=== PATIENT | female | born 1960 | race Caucasian/White ===

== ENCOUNTER 2017-04-07 19:56 | Emergency (ER) | payer OTHER ==
[2017-04-07 20:06] VITALS: BP 136/79
--- NOTE | 2017-04-07 21:11 | UC ---
Headache HPI - HPI Summary HPI Summary: STARTED WITH FIGUEROA ABOUT A WEEK AGO. RIGHT TEMPORAL LOCATION. CONSTANT. NOT LIKE HER MIGRAINES AT ALL. IMITREX AND 800MG ADVIL NOT HELPING. WORSE OVER PAST FEW DAYS. TRAMADOL NOT HELPING. HAS BEEN CRYING HERSELF TO SLEEP. WHEN ASKED IF THIS IS THE WORSE FIGUEROA OF HER LIFE SHE RESPONDS "IT'S GETTING TO IT". ALSO HAS SEVERE PAIN BETWEEN HER SHOUDLER BLADES RADIATING UP HER NECK AND BACK OF HER HEAD. HAS FIBROMYALGIA BUT THIS AGAIN FEELS DIFFERENT. DOES NOT TAKE BLOOD THINNERS. 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 - Hx Last Menstrual Period: 6 months Onset/Duration: Sudden Onset, Lasting Days, Still Present Onset Of Symptoms: Sudden Pain Intensity: 8 Pain Scale Used: 0-10 Numeric Timing: Constant Character: Throbbing Location of Headache: Temporal - RIGHT SIDE Aggravating Factor: Nothing Allevating Factors: Nothing Associated Signs And Symptoms: Positive: Nausea, Neck Pain - Allergies/Home Medications Allergies/Adverse Reactions: Allergies Allergy/AdvReac Type Severity Reaction Status Date / Time Sulfa Antibiotics Allergy Severe Anaphylatic Verified 04/07/17 20:06 Shock Home Medications: Home Medications Multiple Vitamins W/ Minerals [Multivitamin Adults] 1 tab PO DAILY 04/07/17 [ History Confirmed 04/07/17] SUMAtriptan TAB* [Imitrex TAB*] 50 mg PO DAILY PRN 04/07/17 [History Confirmed 04/07/17] PMH/Surg Hx/FS Hx/Imm Hx - Additional Past Medical History Additional PMH: FIBROMYALGIA Neurological History: Migraine - Surgical History Surgical History: Yes Surgery Procedure, Year, and Place: RIGHT AND LEFT OOPHRECTOMY. APPENDECTOMY - Family History Known Family History: Positive: Diabetes - Social History Alcohol Use: None Substance Use Type: None Smoking Status (MU): Never Smoked Tobacco Have You Smoked in the Last Year: No Review of Systems Constitutional: Negative Respiratory: Negative Cardiovascular: Negative Gastrointestinal: Nausea Musculoskeletal: Arthralgia, Myalgia Neurological: Headache All Other Systems Reviewed And Are Negative: Yes Physical Exam Triage Information Reviewed: Yes Appearance: Well-Nourished, Pain Distress - SEVERE Vital Signs: Initial Vital Signs Temp 98.7 F 04/07/17 20:00 Pulse 84 04/07/17 20:00 Resp 16 04/07/17 20:00 BP 136/79 04/07/17 20:00 Pulse Ox 98 04/07/17 20:00 Vital Signs Reviewed: Yes Eyes: Positive: Conjunctiva Clear ENT: Positive: Hearing grossly normal Neck: Positive: Supple Respiratory Exam: Normal Cardiovascular Exam: Normal Abdomen Description: Positive: Soft Musculoskeletal: Positive: No Edema Neurological: Positive: Alert Psychological: Positive: Normal Response To Family, Age Appropriate Behavior Skin: Negative: rashes Headache Course/Dx - Course Course Of Treatment: DISCUSSED POSSIBILITY OF TEMPORAL ARTERITIS , INTRACRANIAL HEMORRHAGE AND NEED FOR FURTHER EVALUATION IN ED. PT DECLINES TRANSFER AND CHOOSES TO SIGN OUT AMA. - Differential Dx/Diagnosis Provider Diagnoses: 1. RIGHT TEMPORAL FIGUEROA. 2. MID/UPPER BACK PAIN Discharge - Discharge Plan Condition: Fair Disposition: AGAINST MEDICAL ADVICE Referrals: Rae Rebolledo MD [Primary Care Provider] -
== END 2017-04-07 21:12 | disposition left against medical advice (07) ==
LOC: UCEAST 19:56
DX: R51 Headache (principal); M54.9 Dorsalgia, unspecified; Z53.29 Procedure and treatment not carried out because of patient's decision for other reasons
CPT/HCPCS: 99212; G0463

== ENCOUNTER 2017-04-16 16:45 | Emergency (ER) | payer OTHER ==
[2017-04-16 16:52] VITALS: BP 111/78
[2017-04-16] MEDS ORDERED: Dexamethasone IV* 4 MG/ML 1 ML (4 MG) IM ONE (18:18)
[2017-04-16] MEDS ORDERED: Ketorolac INJ* 60 MG/2 ML VIAL IM ONE (18:18)
[2017-04-16] MEDS ORDERED: Orphenadrine Citrate IV* 30 MG/ML 2 ML VIAL IM ONE (18:18)
--- NOTE | 2017-04-16 18:23 | ED ---
Back Pain - HPI Summary HPI Summary: 56 female presents with complaints of right upper/mid back pain that began ~2 weeks ago after lifting heavy equipment and feeling something tear. Since then she has had excruciating pain that she has been unable to keep under control. Patient also states she has tenderness on the right side of her face with some intermittent blurred vision in the right eye that has been ongoing since her shoulder pain began. Denies vision loss. "slight right sided headache". She does have migraines and states this feels differently. She also states her jaw feels tight. Has seen Dr Guerra, Dr Clark x 2 and chiropractor for the same complaints. Has been given norco and cortisone shot into her shoulder which she states does give her relief however only for 24 hours. Chiropractor did help. Has also been taking Advil multiple times daily. Has not had any medication today besides 1 norco at 9am. Describes pain to be sharp and burning that is worse when she raises her right arm to brush her or do her hair. Denies numbness /tingling. Denies chest pain, SOB and difficulty breathing. Nausea from pain at times but no vomiting. Take half of flexeril at bedtime for her fibromyalgia. PMHx significant for fibromyalgia and migraines. Dr Clark told her to come to ED after seeing him this afternoon as further imaging and work up would take too long outpatient. No swelling bruising or redness. 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 Unsure of last tick. Denies rash. Right hand dominant. - History of Current Complaint Chief Complaint: EDShoulderClavicleInj Stated Complaint: RT SHOULDER PAIN Time Seen by Provider: 04/16/17 17:51 Hx Obtained From: Patient Hx Last Menstrual Period: 6 months Onset/Duration: Sudden Onset, Lasting Weeks, Still Present, Worse Since Onset/Duration: Started Weeks Ago, Traumatic, Worse Since Timing: Constant Back Pain Location: Is Discrete @ - right upper/mid back shoulder blade radiating to side and neck Severity Initially: Moderate Severity Currently: Severe Pain Intensity: 9 Pain Scale Used: 0-10 Numeric Character: Sharp, Aching Aggravating Symptom(s): Movement Alleviating Symptom(s): Rest, Nothing Associated Signs And Symptoms: Positive: Negative - Risk Factors AAA Risk Factors: Negative TAD Risk Factors: Negative Cauda Equina Risk Factors: Negative Epidural Abscess Risk Factors: Negative - Allergies/Home Medications Allergies/Adverse Reactions: Allergies Allergy/AdvReac Type Severity Reaction Status Date / Time Sulfa Antibiotics Allergy Severe Anaphylatic Verified 04/07/17 20:06 Shock PMH/Surg Hx/FS Hx/Imm Hx Endocrine/Hematology History: Denies: Hx Diabetes Cardiovascular History: Denies: Hx Hypertension Comment Only: Other Cardiovascular Problems/Disorders - MURMUR Respiratory History: Denies: Hx Asthma, Hx Chronic Obstructive Pulmonary Disease (COPD), Other Respiratory Problems/Disorders Neurological History: Reports: Hx Migraine, Other Neuro Impairments/Disorders - fibromyalgia - Cancer History Hx Chemotherapy: No Hx Radiation Therapy: No - Surgical History Surgery Procedure, Year, and Place: RIGHT AND LEFT OOPHRECTOMY. APPENDECTOMY - Immunization History Immunizations Up to Date: Yes Infectious Disease History: No Infectious Disease History: Reports: Hx Shingles Denies: Traveled Outside the [place] in Last 30 Days - Family History Known Family History: Positive: Diabetes - Social History Alcohol Use: None Substance Use Type: Reports: None Hx Tobacco Use: No Smoking Status (MU): Never Smoked Tobacco Have You Smoked in the Last Year: No Review of Systems Constitutional: Negative Positive: Blurred Vision - right eye Cardiovascular: Negative Respiratory: Negative Positive: Nausea Genitourinary: Negative Positive: Arthralgia, Myalgia, Decreased ROM - right shoulder Skin: Negative Neurological: Negative All Other Systems Reviewed And Are Negative: Yes Physical Exam Triage Information Reviewed: Yes Vital Signs On Initial Exam: Initial Vitals Temp Pulse Resp BP Pulse Ox 98.2 F 101 20 111/78 100 04/16/17 16:49 04/16/17 16:49 04/16/17 16:49 04/16/17 16:49 04/16/17 16:49 Vital Signs Reviewed: Yes Appearance: Positive: Well-Appearing, Well-Nourished, Pain Distress - moderate, tearful Skin: Positive: Warm, Skin Color Reflects Adequate Perfusion, Dry. Negative: Cold, Numb, Cyanosis @, Pale, Erythema @ Head/Face: Positive: Normal Head/Face Inspection, Temporal Artery Tenderness Eyes: Positive: Normal, EOMI, SEAN, Conjunctiva Clear, Other: - visual acuity normal ENT: Positive: Hearing grossly normal, Pharynx normal, TMs normal Neck: Positive: Supple, Nontender Respiratory/Lung Sounds: Positive: Clear to Auscultation, Breath Sounds Present. Negative: Rales, Rhonchi, Wheezes Cardiovascular: Positive: Normal, RRR, Pulses are Symmetrical in both Upper and Lower Extremities. Negative: Murmur, Rub Abdomen Description: Positive: No Organomegaly, Soft, Other: - some mild tenderness on deep palpation of RUQ. Negative: Bruit, CVA Tenderness (R), CVA Tenderness (L), Distended, Guarding, Peritoneal Signs, Pulsatile Mass Bowel Sounds: Positive: Present Musculoskeletal: Positive: Normal, Strength/ROM Intact, Pain @ - with movement of right arm, Other - no crepitus, obvious deformity, step off or ecchymosis/ edema. Negative: Limited @, Interruption @, Edema Left, Edema Right Neurological: Positive: Normal, Sensory/Motor Intact, Alert, Oriented to Person Place, Time, CN Intact II-III, Reflexes Intact, NV Bundle Intact Distally, Normal Gait Psychiatric: Positive: Affect/Mood Appropriate - Vinny Coma Scale Best Eye Response: 4 - Spontaneous Best Motor Response: 6 - Obeys Commands Best Verbal Response: 5 - Oriented Diagnostics - Vital Signs Vital Signs Temp Pulse Resp BP Pulse Ox 04/16/17 17:05 97.8 F 101 20 111/78 98 04/16/17 16:49 98.2 F 101 20 111/78 100 - Laboratory Result Diagrams: 04/16/17 18:50 04/16/17 21:13 Lab Statement: Any lab studies that have been ordered have been reviewed, and results considered in the medical decision making process. - CT thoracic CT Interpretation: No Acute Changes - NO ACUTE CT FINDINGS. CT Interpretation Completed By: Radiologist - Ultrasound No standard instances Ultrasound Interpretation: No Acute Changes - mildly fatty liver Ultrasound Interpretation Completed By: Radiologist Re-Evaluation - Re-Evaluation First Eval Re-Evaluation Time: 22:24 Change: Improved - updated patient on lab work and imaging studies, answered questions. patient aware that was waiting for complete lab results which is why she was waiting so long. patient understands and [facility]. Second Eval Re-Evaluation Time: 23:47 Change: Improved Comment: updated on all results, informed on treatment plan, answered questions , ready to be d/c. Back Pain Course/Dx - Course Course Of Treatment: given norflex, dexamethasone and toradol for pain and inflammation. had relief. CT obtained of thoracic, CBC, CMP, CRP, and Sed rate obtained. Also tested for lyme serology due to patient's occupation and unknown if she has been bite by a tick regarding symptoms felt necessary to check. No rash, only concern if complaint of symptoms and occupation being outdoors. All labs unremarkable besides elevated CRP and sed rate and elevated liver enzymes also noted. Due to elevated liver enzymes and complaint of pain with some mild tenderness of RUQ on deep palpation, obtaiend liver U/S which was negative. CT also negative. Pending lyme and hepatitis results- Will continue regimen at home and reassure patient that it may take up to 4 weeks to heal a pulled muscle. Possible nerve impingment where MRI may be necessary. Follow up ortho and neuro for temporal arteritis follow up and definitive diagnosis. Concern for temporal arteritis due to complaint of symptoms, PE findings, elevated CRP and Sed rate. Aware of worsening signs and symptoms to watch out for. Will treat with prednisone for muscle strain and possible temporal arteritis along with already prescribed at home flexeril and continue [place] for pain with 1-2 advil inbetween. Warm/cool compresses. Istop Reference #: [id number] - Diagnoses Differential Diagnosis/HQI/PQRI: Positive: Herniated Disc, Strain, Sprain, Other - nerve impingment, temporal arteritis, hepatitis, lyme disease Provider Diagnoses: Temporal arteritis, Muscle strain of right upper back Discharge - Discharge Plan Condition: Stable Disposition: HOME Prescriptions: predniSONE TAB* [Deltasone TAB*] 40 mg PO DAILY #14 tab Patient Education Materials: Muscle Strain (ED), Temporal Arteritis (ED) Referrals: Rae Rebolledo MD [Primary Care Provider] - Williams Clark MD [Medical Doctor] - Maryana Trejo MD [Medical Doctor] - Additional Instructions: Take prescribed medication you have been given at home, (flexeril and hydrocodone) as directed. Take prescribed new medication of prednisone as directed. Recommend trying over the counter lidoderm patches. Continue warm and cool compresses. Refrain from using your right arm, use pain as your guide. Wear sling as desired. Follow up with ortho and neurology. If symptoms worsen or new symptoms develop as we discussed please seek medical attention promptly. Follow up with primary care provider. You will hear about your lyme and hepatitis results in 5 days. If not please call to check.
[2017-04-16 19:02] LABS: Hematocrit 45 % (35-47); Hemoglobin 14.9 g/dl (12.0-16.0); Mean Corpuscular HGB Conc 33 g/dl (31-36); Mean Corpuscular Hemoglobin 30 pg (27-31); Mean Corpuscular Volume 90 fL (80-97); Mean Platelet Volume 7 um3 (7.4-10.4); Red Blood Count 5.02 10^6/ul (4.0-5.4); Red Cell Distribution Width 14 % (10.5-15); White Blood Count 8.7 10^3/ul (3.5-10.8)
[2017-04-16 19:16] LABS: ALT 157 U/L (7-52); Albumin 3.9 g/dL (3.2-5.2); Alkaline Phosphatase 145 U/L (34-104); BUN/Creatinine Ratio 31.1 (8-20); Blood Urea Nitrogen 19 mg/dL (6-24); CO2 Carbon Dioxide 24 mmol/L (22-32); Calcium 8.9 mg/dL (8.6-10.3); Chloride 101 mmol/L (101-111); EGFR African American 131.4 (>60); EGFR Non-African American 102.2 (>60); Globulin 3.6 g/dL (2-4); Glucose 112 mg/dL (70-100); Sodium 132 mmol/L (133-145); Total Protein 7.5 g/dL (6.4-8.9)
[2017-04-16 19:21] LABS: Anion Gap 7 mmol/L (2-11)
--- NOTE | 2017-04-16 19:21 | RAD ---
INDICATION: Right shoulder blade pain COMPARISON: None TECHNIQUE: Noncontrast axial source images was performed from the thoracic inlet to the level the hemidiaphragms. Coronal and and sagittal reformatted images were generated. FINDINGS: Vertebrae: There is no fracture or acute focal bony lesion. There is minor spurring of the upper thorax there are several small Smorle's nodes involving the lower thoracic vertebrae Alignment: There is mild kyphosis and mild levoscoliosis. Central Canal: There are no significant CT abnormalities of the central canal or foramina. MR imaging is a more sensitive method to evaluate the canal and foramina. Intervertebral disc spaces: The disc spaces are maintained. Soft tissues: There are no paravertebral soft tissue abnormalities. IMPRESSION: NO ACUTE CT FINDINGS.
[2017-04-16 21:01] LABS: C Reactive Protein 72.03 mg/L (< 5.00)
[2017-04-16 21:08] LABS: Erythrocyte Sed Rate 48 mm/Hr (0-30)
--- NOTE | 2017-04-17 07:45 | RAD ---
INDICATION: Elevated liver enzymes and abdominal pain. COMPARISON: There are no prior studies available for comparison. TECHNIQUE: Multiple real-time images of the right upper quadrant were obtained. FINDINGS: The gallbladder appear normal. No gallbladder wall thickening or pericholecystic fluid is present. No intra or extrahepatic ductal distention is present. The common bile duct measured 0.5 cm in diameter. The liver is normal in size and heterogeneous with increased echogenicity which is a nonspecific finding although suggestive of fatty infiltration. The pancreas is partially inferior by overlying bowel gas. The visualized portion of the pancreas appears to be within normal limits. No ductal distention is seen. The right kidney is normal in size without evidence for hydronephrosis. IMPRESSION: 1. NORMAL EXAMINATION OF THE GALLBLADDER. 2. THE LIVER IS HETEROGENEOUS WITH INCREASED ECHOGENICITY. THIS IS A NONSPECIFIC FINDING ALTHOUGH SUGGESTIVE OF FATTY INFILTRATION.
== END 2017-04-17 00:36 | disposition home or self-care (01) ==
LOC: ED 16:45
DX: M54.9 Dorsalgia, unspecified (principal); M31.6 Other giant cell arteritis; S29.012A Strain of muscle and tendon of back wall of thorax, initial encounter; H53.8 Other visual disturbances; R11.0 Nausea; X50.9XXA Other and unspecified overexertion or strenuous movements or postures, initial encounter; Y93.9 Activity, unspecified; Y92.9 Unspecified place or not applicable
CPT/HCPCS: 36415; 72128; 76705; 80053; 80074; 85025; 85652; 86140; 86617; 86618; 96372; 99282; J1100; J1885; J2360

== ENCOUNTER 2017-04-18 06:30 | Emergency (ER) | payer OTHER ==
[2017-04-18 06:42] VITALS: BP 117/74
[2017-04-18] MEDS ORDERED: Tetan/Diph/Pertus SYR(Tdap)* 0.5 ML SYR(BOOSTRIX) use SYR IM ONE (07:45)
[2017-04-18] MEDS ORDERED: predniSONE TAB* 20 MG PO ONE (07:46)
[2017-04-18] MEDS ORDERED: Ketorolac INJ* 30 MG/ML 1 ML VIAL IM ONE (08:04)
[2017-04-18] MEDS ORDERED: HYDROcodone/ACETAMIN 5-325 MG* 1 TAB PO ONE (09:14)
[2017-04-18 10:53] LABS: Hematocrit 40 % (35-47); Hemoglobin 13.3 g/dl (12.0-16.0); Mean Corpuscular HGB Conc 33 g/dl (31-36); Mean Corpuscular Hemoglobin 29 pg (27-31); Mean Corpuscular Volume 89 fL (80-97); Mean Platelet Volume 7 um3 (7.4-10.4); Red Blood Count 4.51 10^6/ul (4.0-5.4); Red Cell Distribution Width 14 % (10.5-15); White Blood Count 14.8 10^3/ul (3.5-10.8)
[2017-04-18 11:19] LABS: Albumin 3.5 g/dL (3.2-5.2); BUN/Creatinine Ratio 42.9 (8-20); C Reactive Protein 44.45 mg/L (< 5.00); Calcium 8.9 mg/dL (8.6-10.3); EGFR African American 145.1 (>60); EGFR Non-African American 112.8 (>60); Globulin 3.3 g/dL (2-4); Potassium 3.7 mmol/L (3.5-5.0); Total Bilirubin 0.3 mg/dL (0.2-1.0); Total Protein 6.8 g/dL (6.4-8.9)
[2017-04-18 11:38] LABS: Erythrocyte Sed Rate 60 mm/Hr (0-30)
--- NOTE | 2017-04-18 12:49 | ED ---
Angelina Fernandes Thomas, scribed for Sabrina Fiore MD on 04/18/17 at 0712 . Bite Injury/Animal - HPI Summary HPI Summary: The pt is a 56 y/o F accompanied by her presenting to the ED s/p bat exposure this AM and c/o R shoulder pain and back pain s/p injury lifting heavy equipment and feeling a tear. She noticed the bat this AM when she woke up and she suspects she may have been bitten by the bat. She never saw the bat on her and she did not feel a bite. She reports that the bat is still locked in her house. The pt claims 6 stanley on her L chest and L shoulder. He pain is located in her R scapular and R mid-thoracic spinal area. The pt rates the pain 8/10 and describes the pain as constant. The pain is alleviated by [place] and cortisone shots, which relieve the pain for 24 hours. The pain is aggravated by nothing. The patient treated the pain with Advil and Hydrocodone today at 01: 00. Pt additionally c/o R-sided FIGUEROA (improved from her visit two days ago), tightness in her jaw, nausea (secondary to the pain), tenderness to R face, painful breathing, and intermittent blurred vision. Pt denies vision loss, numbness, tingling, CP, SOB, dyspnea, neck pain, and vomiting. PMHx: fibromyalgia, migraine. PSHx: R and L oophorectomy and appendectomy. SHx: no alcohol, no illicit drugs, no tobacco, li. FHx: DM. She was seen two days ago for the same complaint, and previous documentation was reviewed. She is taking prednisone as directed from her visit 2 days ago, but she has not taken any today. She had a CT T-spine and liver US performed two days ago, which were both negative for acute findings. She has previously seen Dr. Guerra, Dr. Clark , and a chiropractor for the same complaints. She confirms known tick bites. At the time of initial examination, she was in the process of following up for possible temporal arteritis after starting prednisone on 04/16/17, trying to get appointments with Dr. Rebolledo and Dr. Trejo. Her Lyme serology and hepatitis labs are pending at this time, drawn on 04/16/17. 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 Hx Last Menstrual Period: 6 months Onset of Injury: Happened hours ago - suspected this AM, Still Present Type of Bite: Wild Animal - bat Hx of Bite: Unprovoked Has Animal Been Immunized?: Unknown Severity Initially: Mild Severity Currently: Mild Pain Intensity: 8 Pain Scale Used: 0-10 Numeric Aggravating Factor(s): Nothing Alleviating Factor(s): Nothing Associated Signs And Symptoms: Negative: Fever, Numbness/Tingling Animal Available for Observation: No Animal Control Notified: No - Allergies/Home Medications Allergies/Adverse Reactions: Allergies Allergy/AdvReac Type Severity Reaction Status Date / Time Sulfa Antibiotics Allergy Severe Anaphylatic Verified 04/07/17 20:06 Shock Amitriptyline Allergy Unknown Verified 04/18/17 06:40 Reaction Details Gabapentin Allergy Agitation Verified 04/18/17 06:40 PMH/Surg Hx/FS Hx/Imm Hx Previously Healthy: No - fibromyalgia Endocrine/Hematology History: Denies: Hx Diabetes Cardiovascular History: Denies: Hx Hypertension Comment Only: Other Cardiovascular Problems/Disorders - MURMUR Respiratory History: Denies: Hx Asthma, Hx Chronic Obstructive Pulmonary Disease (COPD), Other Respiratory Problems/Disorders Neurological History: Reports: Hx Migraine, Other Neuro Impairments/Disorders - fibromyalgia - Cancer History Hx Chemotherapy: No Hx Radiation Therapy: No - Surgical History Surgery Procedure, Year, and Place: RIGHT AND LEFT OOPHRECTOMY. APPENDECTOMY Infectious Disease History: Yes Infectious Disease History: Reports: Hx Shingles Denies: Traveled Outside the [place] in Last 30 Days - Family History Known Family History: Positive: Diabetes - Social History Occupation: Employed Full-time Lives: With Family Alcohol Use: None Substance Use Type: Reports: None Hx Tobacco Use: No Smoking Status (MU): Never Smoked Tobacco Have You Smoked in the Last Year: No Review of Systems Negative: Fever Positive: Blurred Vision - intermittent. Negative: Other - NEG: vision loss Negative: Chest Pain Positive: Other - POS: painful breathing; NEG: dyspea. Negative: Shortness Of Breath Positive: Nausea - secondary to pain. Negative: Vomiting Positive: Other - POS: R shoulder pain, upper/middle back pain, tightness in jaw , tenderness to R face Neurological: Other - NEG: tingling Positive: Headache - R-sided, improved from 2 days ago on prednisone . Negative : Numbness All Other Systems Reviewed And Are Negative: Yes Physical Exam Triage Information Reviewed: Yes Vital Signs On Initial Exam: Initial Vitals Temp Pulse Resp BP Pulse Ox 97.6 F 74 18 117/74 100 04/18/17 06:34 04/18/17 06:34 04/18/17 06:34 04/18/17 06:34 04/18/17 06:34 Vital Signs Reviewed: Yes Appearance: Positive: Well-Appearing, Well-Nourished, Pain Distress - due to back pain and right shoulder pain, tearful in the ED Skin: Positive: Warm, Skin Color Reflects Adequate Perfusion, Other - I see what appear to be 6 pinpoint petechiae or hemangiomas in the L anterior chest and lower neck area. They do not look like "bites" of any type. Head/Face: Positive: Normal Head/Face Inspection Eyes: Positive: Conjunctiva Clear ENT: Positive: Normal ENT inspection Neck: Positive: Supple, Nontender Respiratory/Lung Sounds: Positive: Clear to Auscultation, Breath Sounds Present , Other - No respiratory distress Cardiovascular: Positive: RRR, Pulses are Symmetrical in both Upper and Lower Extremities, Other - Brisk cap refill. Negative: Murmur Abdomen Description: Positive: Nontender, No Organomegaly, Soft Bowel Sounds: Positive: Present Musculoskeletal: Positive: Strength/ROM Intact, Other - There is mid-thoracic spinal tenderness on palpation. Her back pain is not reproducible. There is also no calf tenderness.. Negative: Jacqueline Sign Left, Jacqueline Sign Right, Edema Left, Edema Right Neurological: Positive: Sensory/Motor Intact, Alert, Oriented to Person Place, Time, CN Intact II-III, Speech Normal. Negative: Facial Droop, Focal Deficit @ Psychiatric: Positive: Normal Diagnostics - Vital Signs Vital Signs Temp Pulse Resp BP Pulse Ox 04/18/17 06:34 97.6 F 74 18 117/74 100 - Laboratory Result Diagrams: 04/18/17 10:35 04/18/17 10:35 Lab Statement: Any lab studies that have been ordered have been reviewed, and results considered in the medical decision making process. Re-Evaluation - Re-Evaluation First Eval Re-Evaluation Time: 08:09 Change: Unchanged Comment: Informed the patient of my consults with the health department and with her PCP. We discussed the plan going forward Second Eval Re-Evaluation Time: 09:46 Change: Improved Comment: The patient was informed that the [facility] does not recommend shots as long as they can capture the bat. The bat can be alive or . Her pain is now 6/10 (previously 8/10). They recommend catching it with a Yogurt container. I also informed her of my consults with Dr. Trejo and Dr. Rebolledo. Third Eval Re-Evaluation Time: 11:36 Change: Improved Comment: I gave the patient a final update regarding her scheduled follow-ups, including her appointment with Dr. Hugo for temporal artery biopsy tomorrow at 11:15am, which I made for her, per Dr. Trejo's request. Advised her that labs are pending. She rates her pain 6/10, remarking that it has "improved" Bite Injury Course/Dx - Course Course Of Treatment: I spoke with the shelly Monterroso at [facility], at 07:58. He notes that this is a typical bat in the bedroom. We discussed the plan going forward. At 10:22, I am putting in the labs recommended by Dr. Trejo for temporal arteritis workup. Assessment/Plan: The pt is a 56 y/o F accompanied by her presenting to the ED s/p bat exposure this AM and c/o R shoulder pain and back pain s/p injury lifting heavy equipment and feeling a tear. She noticed the bat this AM when she woke up and she suspects she may have been bitten by the bat. She never saw the bat on her and she did not feel a bite. She reports that the bat is still locked in her house. The pt claims 6 stanley on her L chest and L shoulder. He pain is located in her R scapular and R mid-thoracic spinal area. The pt rates the pain 8/10 and describes the pain as constant. The pain is alleviated by [place] and cortisone shots, which relieve the pain for 24 hours. The pain is aggravated by nothing. The patient treated the pain with Advil and Hydrocodone today at 01:00. Pt additionally c/o R-sided FIGUEROA (improved from her visit two days ago), tightness in her jaw, nausea (secondary to the pain), tenderness to R face, painful breathing, and intermittent blurred vision. Pt denies vision loss, numbness, tingling, CP, SOB, dyspnea, neck pain, and vomiting. PMHx: fibromyalgia, migraine. PSHx: R and L oophorectomy and appendectomy. SHx: no alcohol, no illicit drugs, no tobacco, li. FHx: DM. She was seen two days ago for the same complaint, and previous documentation was reviewed. She is taking prednisone as directed from her visit 2 days ago, but she has not taken any today. She had a CT T-spine and liver US performed two days ago, which were both negative for acute findings, showing only fatty liver. She has previously seen Dr. Guerra, Dr. Clark, and a chiropractor for the same complaints. She confirms known tick bites. At the time of initial examination, she was in the process of following up for possible temporal arteritis after starting prednisone on 04/16/17. In the ED course she was given a Tdap vaccination for update after possible bat exposure, prednisone, and Toradol. Patients medication reviewed this visit. Allergies noted. The patient was informed that many of her current complaints are not emergent in nature, they should be addressed by a specialist. The patient was informed to capture the bat but keep the brain intact if at all possible. I spoke with the shelly Monterroso at [facility], at 07:58. He notes that this is a typical bat in the bedroom. We discussed the plan going forward. I consulted with the pts PCP Dr. Rebolledo at 08:05 and informed her of the patients status in the ED. Dr. Rebolledo agreed to see the pt within a week. Her CRP is 72 from previous visit 04/16/17. At 08:09, I informed the patient of my consults with the health department and with her PCP. We discussed the plan going forward. At re-evaluation at 9:46, the patient was informed that the [facility] does not recommend shots as long as they can capture the bat. The bat can be alive or . Her pain is now 6/10 (previously 8/10). They recommend catching it with a Yogurt container. I also informed her of my consults with Dr. Trejo and Dr. Rebolledo. I consulted with Dr. Trejo, neurology, at 09:37. She discussed the plan of obtaining a temporal artery biopsy to see if there is temporal arteritis. She also recommended bloodwork including PT, PTT, CBC, ESR, CRP, and ANGEL. She is also working on scheduling and appointment with Dr. Xu Willams, neurology. I also consulted with Dr. Rebolledo, the pts PCP, at 09:46, who says that her office is expecting a call from the patient, as their office tried to call pt and pt's voicemailbox was full. At 10:22, I am putting in the labs recommended by Dr. Trejo for temporal arteritis workup. I called Dr. Sands, who said that the biopsy could be performed tomorrow at her office. At 11:37 I made a final re-evaluation and updated the patient regarding the plan forward and her follow-ups. Dr. Hugo will do the temporal artery biopsy at 11:15am. Pt is agreeable with this plan. I informed the patient of the address of [facility] and general advice for how to catch the bat, or alive. [facility] does not recommend any rabies immunizations per [facility], until the rabies status of the bat is known. - Diagnoses Differential Diagnosis/HQI/PQRI: Positive: Rabies Exposure Provider Diagnosis: Shoulder pain, right, Temporal arteritis, Rabies exposure - Provider Notifications Discussed Care Of Patient With: Rae Rebolledo Time Discussed With Above Provider: 08:06 Instructed by Provider To: Have Pt Call For Appt. - Informed the pt's PCP of the pt's status in ED. Dr. Rebolledo agrees to see her within a week. I consulted with Dr. Trejo, neurology, at 09:37. She discussed the plan of obtaining a temporal artery biopsy to see if there is temporal arteritis. She also recommended bloodwork including PT, PTT, CBC, ESR, CRP and ANGEL. She is also working on scheduling and appointment with Dr. Xu Willams, neurology. Dr. Sands OK'd urgent temporal artery biopsy, scheduled with Dr. Hugo for tomorrow. Discharge - Discharge Plan Condition: Stable Disposition: HOME Patient Education Materials: Animal Bite (ED), Temporal Arteritis (ED), Shoulder Pain (ED) Referrals: Roberth Willams MD [Medical Doctor] - As Soon As Possible Nuvia Sands MD [Medical Doctor] - As Soon As Possible Abelino Hugo MD [Medical Doctor] - 1 Day Rae Rebolledo MD [Primary Care Provider] - As Soon As Possible Maryana Trejo MD [Medical Doctor] - 1 Week Additional Instructions: Please submit the bat live or to [facility], [address]. The [facility] will notify you if you need the rabies immunizations based on these results. You were given Toradol 30mg IM, hydrocodone 5/325mg, and prednisone 40mg while you were in the ER for your shoulder pain. Labs were drawn for further evaluation of your temporal arteritis. Those results are still pending. We will contact you if any change in therapy is needed based on those results. Dr. Hugo will do your temporal artery biopsy tomorrow at 11:15am Dr. Willams from neurology will see you TRUMAN. Dr. Trejo okayed this appointment. Dr. Rebolledo or one of her FIELD TEST ENGINEER's will see you within a week. Call for this appointment. Dr. Rebolledo okayed the timing of this appointment. Keep your appointment with Dr. Clark for tomorrow at 0915 for further evaluation of your shoulder pain. You should continue the medicines prescribed by Trixie Owens, including the prednisone, as directed. RETURN TO THE EMERGENCY DEPARTMENT FOR ANY NEW OR WORSENING SYMPTOMS The documentation as recorded by the Angelina hunter Thomas accurately reflects the service I personally performed and the decisions made by me, Sabrina Fiore MD.
== END 2017-04-18 12:47 | disposition home or self-care (01) ==
LOC: ED 06:30
DX: M25.511 Pain in right shoulder (principal); M31.6 Other giant cell arteritis; Z20.3 Contact with and (suspected) exposure to rabies; H53.8 Other visual disturbances; R11.0 Nausea; R51 Headache
CPT/HCPCS: 36415; 80053; 85025; 85610; 85652; 85730; 86038; 86140; 90715; 96372; 99282; J1885; J7512

== ENCOUNTER 2017-04-24 23:22 | Emergency (ER) | payer OTHER ==
[2017-04-24 23:35] VITALS: BP 124/77
== END 2017-04-25 00:39 | disposition left against medical advice (07) ==
LOC: ED 23:22
DX: R06.02 Shortness of breath (principal); Z53.21 Procedure and treatment not carried out due to patient leaving prior to being seen by health care provider

== ENCOUNTER 2018-04-01 20:18 | Emergency (ER) | payer OTHER ==
[2018-04-01 20:42] VITALS: BP 136/88
[2018-04-01] MEDS ORDERED: DOXYcycline CAP(*) 100 MG PO ONE (21:27)
--- NOTE | 2018-04-01 21:31 | UC ---
Skin Complaint HPI - HPI Summary HPI Summary: 57 y/o female presents to the urgent care c/o a possible tick bite in the back of his left leg since yesterday. 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 She went to a lot of testing and expenses until they finally figure out thet her symptoms were due to Lyme disease . Now she is very concern about the insect bite in her leg and wants prophylactic treatment if it is a tick bite. She usually has back pain due to Hx fibromyalgia and Lyme, but today she thinks it is worse. Pt denies fever, FIGUEROA , chest pain, abdominal pain, N/V/D. - History of Current Complaint Chief Complaint: UCLowerExtremity Time Seen by Provider: 04/01/18 21:13 Stated Complaint: TICK BITE Hx Obtained From: Patient Hx Last Menstrual Period: 6 months ?: No Onset/Duration: Sudden Onset, Lasting Days - 1 day, Still Present Skin Exposure Onset/Duration: Days Ago - 1 day Timing: Constant Onset Severity: Mild Current Severity: Mild Pain Intensity: 5 Pain Scale Used: 0-10 Numeric Location: Discrete - left posterior leg rash Character: Redness Aggravating Factor(s): Touch Alleviating Factor(s): Nothing Associated Signs & Symptoms: Positive: Rash. Negative: Fever, Chills, Drainage , Bruising, Tenderness Related History: Possible Reaction to: Insect - Allergy/Home Medications Allergies/Adverse Reactions: Allergies Allergy/AdvReac Type Severity Reaction Status Date / Time MS Sulfa Antibiotics Allergy Severe Anaphylatic Verified 04/01/18 20:42 [Sulfa Antibiotics] Shock MS Erythromycin Allergy Rash Verified 04/01/18 20:42 [Erythromycin] MS Gabapentin [Gabapentin] Allergy Agitation Verified 04/01/18 20:42 MS Amitriptyline AdvReac Mild MENTALLY Verified 04/01/18 20:42 [Amitriptyline] AND PHYSICALLY DYSFUNCTIONAL Home Medications: Home Medications Morphine Er 04/01/18 [History] Review of Systems Constitutional: Negative Skin: Rash - left posterior leg Eyes: Negative ENT: Negative Respiratory: Negative Cardiovascular: Negative Gastrointestinal: Negative Genitourinary: Negative Motor: Negative Neurovascular: Negative Musculoskeletal: Other: - back pain Neurological: Negative Psychological: Negative Is Patient Immunocompromised?: No All Other Systems Reviewed And Are Negative: Yes PMH/Surg Hx/FS Hx/Imm Hx Previously Healthy: Yes Other Endocrine History: Lyme disease, Fibromyalgia Neurological History: Migraine - Surgical History Surgical History: Yes Surgery Procedure, Year, and Place: RIGHT AND LEFT OOPHRECTOMY. APPENDECTOMY. LASIX EYES. BIOPSY - TUBAL ARTERISTIS - Family History Known Family History: Positive: Diabetes - Social History Occupation: Employed Full-time Lives: With Family Alcohol Use: None Substance Use Type: None Smoking Status (MU): Never Smoked Tobacco Have You Smoked in the Last Year: No Physical Exam - Summary Physical Exam Summary: Vital Signs Reviewed: Yes General: well developed, well nourished female sitting in the examining table w/ o any apparent distress. Eyes: Positive: Conjunctiva Clear - PERRLA, EOMI ENT: Positive: Normal ENT inspection, Hearing grossly normal, Pharynx normal, TMs normal Neck: Positive: Supple, Nontender, No Lymphadenopathy Respiratory: Positive: Chest nontender, Lungs clear, Normal breath sounds Cardiovascular: Positive: RRR, No Murmur, Pulses Normal Abdomen Description: Positive: Nontender, No Organomegaly, Soft. Negative: CVA Tenderness (R), CVA Tenderness (L) Bowel Sounds: Positive: Present Musculoskeletal: Positive: Strength Intact, ROM Intact, No Edema Neurological Exam: Normal Psychological Exam: Normal Skin: Positive: rashes - Proximal lateral aspect of posterior Left leg with tick bite with surrounding erythema, non tender to palpation. tick no longer present, no swelling or drainage observed. Triage Information Reviewed: Yes Vital Signs: Initial Vital Signs Temp 97.8 F 04/01/18 20:37 Pulse 81 04/01/18 20:37 Resp 18 04/01/18 20:37 BP 136/88 04/01/18 20:37 Pulse Ox 100 04/01/18 20:37 Course/Dx - Course Course Of Treatment: 57 y/o female presents to the urgent care c/o a possible tick bite in the back of his left leg since yesterday. 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 She went to a lot of testing and expenses until they finally figure out thet her symptoms were due to Lyme disease . Now she is very concern about the insect bite in her leg and wants prophylactic treatment if it is a tick bite. She usually has back pain due to Hx fibromyalgia and Lyme, but today she thinks it is worse. Pt denies fever, FIGUEROA, chest pain, abdominal pain, N/V/D. Hx obtained. Pt w/ a tick bite in the left proximal side of posterior leg. Antibiotic prophylaxis with Doxycycline given to the patient. Pt tolerated well medication. Pt strongly advised to f/u w/ her DR Rebolledo natalya is manageming her Lyme disease of Dr Meeks for further maangement.Pt understood and agreed with plan of care. - Differential Diagnoses - Skin Complaint Differential Diagnoses: Abscess, Cellulitis, Local Allergic Reaction, Tick Born Illness, Urticaria, Other - insect bite, bee sting - Diagnoses Provider Diagnoses: 1- left posterior leg tick bite Discharge - Sign-Out/Discharge Documenting (check all that apply): Patient Departure - D/C home - Discharge Plan Condition: Stable Disposition: HOME Prescriptions: Bacitracin OINTMENT* 1 applic TOPICAL BID #1 tube Patient Education Materials: Tick Bite (ED) Referrals: Rae Rebolledo MD [Primary Care Provider] - 2 Days Additional Instructions: 1- Please observe the area for the development or Erythema Migrans for upto 30 days following exposure. Components of the tick saliva can cause transient erythema that should not be confused with Erythema Migrans. If you develop the bull's eye rash, fever, joint pains please return to the urgent care or f/u with your PCP Dr Rebolledo or DR Meeks for further management. 2-Antibiotic prophylaxis with Doxycycline was given to you today to prevent lyme Disease. 3- Please apply Bacitracin oint ger tick bite as directed - Billing Disposition and Condition Condition: STABLE Disposition: Home Attestation Statement User Type: Provider - I was available for consult. This patient was seen by the MELIDA. The patient was not presented to, seen by, or examined by me. -Shannan
== END 2018-04-01 21:41 | disposition home or self-care (01) ==
LOC: UCEAST 20:18
DX: S80.862A Insect bite (nonvenomous), left lower leg, initial encounter (principal); M79.7 Fibromyalgia; Z88.2 Allergy status to sulfonamides; Z88.1 Allergy status to other antibiotic agents; Z88.8 Allergy status to other drugs, medicaments and biological substances; W57.XXXA Bitten or stung by nonvenomous insect and other nonvenomous arthropods, initial encounter; Y92.9 Unspecified place or not applicable
CPT/HCPCS: 99212; A9270-GY; G0463